=== PATIENT | female | born 1995 | race Two or more races ===

== ENCOUNTER 2025-06-30 15:30 | Emergency (ER) | payer OTHER ==
[~2025-06-30] VITALS: Ht 165.1 cm; Wt 102.1 kg
[2025-06-30] MEDS ORDERED: KETOROLAC TROMETHAMINE 15 MG VIAL IV STA (16:45)
[2025-06-30] MEDS ORDERED: 0.9 % SODIUM CHLORIDE 1,000 ML IV STA (16:45)
[2025-06-30] MEDS ORDERED: IPRATROPIUM BROMIDE 0.5 MG/2.5 ML AMPUL.NEB IH SCH (16:45)
[2025-06-30] MEDS ORDERED: METHYLPREDNISOLONE SOD SUCC 125 MG VIAL IV STA (16:45)
[2025-06-30] MEDS ORDERED: LEVALBUTEROL HCL 1.25 MG/3 ML SOLUTION IH SCH (16:45)
[2025-06-30] MEDS ORDERED: CEFTRIAXONE SODIUM 1,000 MG VIAL IV STA (16:46)
[2025-06-30] MEDS ORDERED: ACETAMINOPHEN 325 MG TABLET PO STA (16:47)
[2025-06-30] MEDS ORDERED: KETOROLAC TROMETHAMINE 30 MG VIAL ONE (17:44)
[2025-06-30] MEDS ORDERED: ACETAMINOPHEN 500 MG GEL..CAP PO ONE (17:45)
[2025-06-30] MEDS ORDERED: METHYLPREDNISOLONE SOD SUCC 125 MG VIAL ONE (17:45)
[2025-06-30] MEDS ORDERED: CEFTRIAXONE SODIUM 1,000 MG VIAL ONE (17:45)
[2025-06-30] MEDS ORDERED: IPRATROPIUM BROMIDE 0.5 MG/2.5 ML AMPUL.NEB IH ONE (17:47)
[2025-06-30] MEDS ORDERED: LEVALBUTEROL HCL 0.63 MG/3 ML SOLUTION IH ONE (17:48)
== END 2025-06-30 19:16 | disposition home or self-care (01) ==
LOC: ER 15:30
DX: J10.1 Influenza due to other identified influenza virus with other respiratory manifestations (principal); E86.0 Dehydration